=== PATIENT | male | born 1980 | race Hispanic/Latino ===

== ENCOUNTER 2018-08-20 23:27 | Emergency (ER) | payer OTHER, SELFPAY ==
[2018-08-20 23:37] VITALS: BP 149/94; PULSE 88; RESP 20; TEMP 37.1; O2SAT 99
--- NOTE | 2018-08-20 23:41 | ED_ITS ---
HPI - URI/Sore Throat General Chief Complaint: Upper Respiratory Symptoms Stated Complaint: Right lung burning sensation, face feels flushed Time Seen by Provider: 08/20/18 23:40 Source: patient Mode of arrival: ambulatory Limitations: no limitations History of Present Illness HPI Narrative: Patient is an otherwise healthy 37-year-old male here for evaluation of a ?flushing? feeling to the right side of his face. He states that this symptom has greatly resolved since its onset several hours ago. He also states he has a burning sensation on the right side of his chest. No coughing. No fevers. Related Data Previous Rx's Medication Instructions Recorded clindamycin HCl 300 mg PO Q6H #38 cap 02/26/17 Allergies Allergy/AdvReac Type Severity Reaction Status Date / Time No Known Allergies Allergy Uncoded 05/31/17 11:46 Review of Systems Constitutional Denies fever(s) and Denies headache(s) ENT Ears, Nose, Mouth, and Throat: Denies headache(s) Comments: Burning the right side of his face Cardiovascular Denies chest pain Respiratory Comments: Burning right side of his chest Musculoskeletal Reports myalgias and Reports arthralgias Integumentary/Breasts Denies new lesions and Denies rash Neurologic Denies headache(s), Denies paresthesias and Denies tremor(s) Hematologic/Lymphatic Denies easy bleeding and Denies easy bruising [facility] Medical History Zoster (Acute) Social History Smoking Status: Never smoker Social History Smoking Status: Never smoker Exam Initial Vital Signs Initial Vital Signs: Vital Signs Temperature 98.7 F 08/20/18 23:37 Pulse Rate 88 08/20/18 23:37 Respiratory Rate 20 08/20/18 23:37 Blood Pressure 149/94 H 08/20/18 23:37 Pulse Oximetry 99 08/20/18 23:37 Const General: cooperative, well developed and well groomed Orientation: alert, awake and oriented x3 HENMT Head: normal to inspection and normocephalic Ears: TM's normal bilaterally Nose: external nose normal Face and sinus: normal facial exam Mouth: oral mucosae normal Resp Effort & Inspection: normal respiratory effort Auscultation: clear to auscultation bilaterally Cardio Rate: regular rate Rhythm: regular rhythm Pulses: radial pulses present GI Inspection: non-distended Palpation: soft, No firm and No tender Skin Lesions: no lesions Rashes: no rashes Neuro General: alert, awake and oriented x3 Cognition: normal cognition Speech: speech normal Motor: muscle tone normal throughout Extrem General: normal to inspection and capillary refill normal Psych Appearance: grossly normal and well kempt Course Orders Ordered: ED Orders 08/20/18 23:41 XR chest 2V Stat Vital Signs - 8 hr 08/20/18 23:37 Temperature 98.7 F Pulse Rate 88 Respiratory Rate 20 Blood Pressure 149/94 H Pulse Oximetry 99 MDM - URI/Sore Throat Imaging Data Chest x-ray: Attestation: I personally reviewed and interpreted this imaging study as follows: My impression: No acute abnormalities MDM Narrative Medical decision making narrative: Patient not any respiratory distress. Lungs are clear. Chest x-ray is negative. No rash on his face. He states he has had zoster in the past and this does not feel like that. His relatively normal exam. Hold on further workup for now. Was given return precautions and follow- up instructions. Expressed understanding and agreement with plan. Discharge Plan Departure Patient Disposition: Home Clinical Impression: Facial paresthesia Discharge Date/Time: 08/21/18 00:35 Interventions: ED Discharge Assessment Last Done: 08/21/18 00:42 Instructions: DI for Numbness/tingling Activity Restrictions/Additional Instructions: Contact your primary care provider for a follow-up. Return to the emergency department for any new symptoms, worsening symptoms, problems breathing or any other concerning symptoms. Prescriptions: No Action clindamycin HCl 300 MG capsule 300 mg PO Q6H Qty: 38 RF: 0
--- NOTE | 2018-08-20 23:41 | DI.RAD.S_ITS ---
PROCEDURE: XR CHEST 2V INDICATIONS: Burning sensation in lungs TECHNIQUE: 2 views of the chest were acquired. COMPARISON: None. FINDINGS: Surgical changes and devices: None. Lungs and pleura: Lungs are clear. No pleural effusions or pneumothorax. Mediastinum: Mediastinal contours are normal. Heart size is normal. Bones and chest wall: No suspicious bony abnormalities. Soft tissues appear unremarkable. IMPRESSION: No acute disease Dictated by: Wili oClón M.D. on 08/21/2018 at 8:22 Approved by: Wili Colón M.D. on 08/21/2018 at 8:22
== END 2018-08-21 00:35 | disposition home or self-care (01) ==
PROVIDERS: Emergency Provider Emergency Medicine
DX: R20.9 Unspecified disturbances of skin sensation (principal); R07.9 Chest pain, unspecified
CPT/HCPCS: 71046; 99282; 99283

== ENCOUNTER → 2020-08-29 09:16 | Outpatient (CLI) | payer OTHER, SELFPAY ==
--- NOTE | 2020-08-29 09:19 | DI.RAD.S_ITS ---
PROCEDURE: XR KNEE RT 3V INDICATIONS: pain TECHNIQUE: 3 views of the knee were acquired. COMPARISON: None. FINDINGS: Bones: No fractures or dislocations. No suspicious bony lesions. There is a small enthesophyte seen along the superior aspect of the patella on the lateral view. Soft tissues: There is a moderate joint effusion. No suspicious soft tissue calcifications. IMPRESSION: Moderate joint effusion, without a significant bony abnormality identified. If it would be helpful for clinical management decision making, please consider a dedicated, scheduled knee MRI for further evaluation (assuming that there is no contraindication). Dictated by: Fabio Isbell M.D. on 08/29/2020 at 9:05 Approved by: Fabio Isbell M.D. on 08/29/2020 at 9:06
== END ==
PROVIDERS: Referring Provider Physician Assistant; Visit Provider Physician Assistant
DX: M25.561 Pain in right knee (principal); M25.461 Effusion, right knee
CPT/HCPCS: 73562